=== PATIENT | female | born 1950 | race Caucasian/White ===

== ENCOUNTER 2017-02-08 01:02 | Inpatient (IN) | payer OTHER ==
--- NOTE | ~2017-02-08 | EKG ---
PATIENT: MYRA ELAM UNIT #: [id number] Ventricular Rate: 115 BPM Atrial Rate: 115 BPM P-R Interval: 144 ms QRS Duration: 96 ms Q-T Interval: 348 ms QTC Calculation(Bezet): 481 ms P [place]: 66 degrees Calculated R [place]: -66 degrees Calculated T [place]: 78 degrees Diagnosis Line: Sinus tachycardia Diagnosis Line: Left axis deviation Diagnosis Line: Nonspecific ST abnormality Diagnosis Line: Abnormal ECG Diagnosis Line: No previous ECGs available Diagnosis Line: Confirmed by BEATRIZ SUNSHINE MD ([id number]) on 02/08/2017 Diagnosis Line: 10:43:30 AM INTERPRETING MD: BITA LOPEZ
--- NOTE | ~2017-02-08 | CO ---
Unit #: [id number] #: [id number] Patient: MYRA ELAM [id number] [address] [address] [id number] I MR#: [id number] NAME: MYRA ELAM ROOM: [facility] Age: 66 Sex: F Admission Date: 02/08/2017 : 1950 Attending Physician: Derek Green M.D. Primary Care Physician: Jd Marte M.D. Consultation Date: 02/08/2017 CONSULTATION REPORT REASON FOR CONSULT Vent management. HISTORY OF PRESENT ILLNESS This is a 66-year-old female with past medical history significant for COPD, alcohol abuse, depression, who presented to the emergency room after she took 20 pills of Klonopin with the intention to kill herself. Patient is currently on the ventilator, unable to provide any history. Apparently patient when presented to the ER she was oriented x3 but she was very frustrated and depressed. She stated that she no longer wants to live anymore. In the ER she received charcoal but there was concern of aspiration and respiratory compromise so patient was intubated by the ER physician at that time. She is currently sating 100% on only 50% FIO2. She is in no distress and she is following commands. Alcohol level was 295. PAST MEDICAL HISTORY 1. COPD. 2. Alcohol abuse. 3. Chronic iron deficiency anemia. 4. Seasonal allergy. 5. Depression. 6. GERD. 7. Hypothyroidism. 8. History of atrial flutter. 9. History of GI bleed. PAST SURGICAL HISTORY 1. Appendectomy. 2. Hysterectomy. 3. Right knee surgery. 4. Cardiac ablation. SOCIAL HISTORY Patient lives at home. She drinks alcohol daily up to a six pack. She is a reformed smoker. She quit smoking six years ago but she had 30 to 50 pack-year smoking history. No history of drug abuse. FAMILY HISTORY Noncontributory. ALLERGIES 1. Penicillin. Unit #: [id number] #: [id number] Patient: MYRA ELAM 2. Codeine. 3. Latex. 4. Strawberries. HOME MEDICATION 1. Ferrous sulfate. 2. Bumex. 3. Zoloft. 4. Cardizem. 5. Aspirin. 6. Flecainide. 7. Flonase. 8. Synthroid. 9. Proventil. 10. Symbicort. 11. Spiriva. 12. Ventolin. 13. Omeprazole. 14. Levaquin. 15. Mobic. REVIEW OF SYSTEMS Unable to obtain from the patient due to her condition. PHYSICAL EXAMINATION VITAL SIGNS: Temperature 98.2. Pulse 86. Respiratory rate 16. Blood pressure 131/71. HEENT: Normocephalic and atraumatic. PERRLA. EOMI. NECK: Supple. No JVD. No lymphadenopathy. CHEST: Bilateral coarse rhonchi. HEART: S1, S2. No murmurs, gallops or rubs. ABDOMEN: Soft, nontender. Bowel sound is positive. No hepatosplenomegaly. EXTREMITIES: No edema or cyanosis. SKIN: No rashes. REHABILITATION CENTER MANAGER: Patient is intubated and sedated. However she is waking up on sedation and following commands. DIAGNOSTIC STUDIES LABORATORY: Creatinine 0.7, magnesium 1.7, white blood count unavailable. IMAGING: Chest x-ray was reviewed and noted. ASSESSMENT 1. Acute hypoxic respiratory failure. 2. Aspiration. 3. Drug overdose. 4. Suicidal attempt. 5. Alcoholism. 6. Chronic obstructive pulmonary disease. 7. Hypertension. PLAN 1. Patient is critical. Will continue patient on the ventilator but will attempt spontaneous breathing trial hoping that she can come off the vent soon. 2. Will add bronchodilator and mucolytics. 3. I will watch off antibiotics. However, if she spikes fever or if she Unit #: [id number] #: [id number] Patient: MYRA ELAM has any change in her condition will proceed with anaerobic coverage. 4. Continue patient on IV fluid and monitor urine output. 5. Will keep her n.p.o. However, will start tube feed tomorrow if she is not extubated. 6. DVT/GI prophylaxis. Dictated by... Sheba Pugh TD: 02/08/2017 17:18 JOB #: [id number] CONSULTATION REPORT Page 1 of 1 X IZA WHEELER MD CONSULTATION REPORT
--- NOTE | ~2017-02-08 | CO ---
Unit #: [id number] #: [id number] Patient: MYRA ELAM [id number] [facility] [address] [place], [place] [address] [id number] I MR#: [id number] NAME: MYRA ELAM ROOM: 318 Age: 66 Sex: F Admission Date: 02/08/2017 : 1950 Attending Physician: Derek Green M.D. Primary Care Physician: Jd Marte M.D. Consultation Date: 02/12/2017 CONSULTATION REPORT REASON FOR CONSULTATION Followup. DISCUSSION Ms. Myra Elam is a 66-year-old female seen in room 318, bed 1 on 02/12/17 at [facility]. Patient has a sitter. Reports that she is feeling better. Decrease in anxiety. Mood is better. Patient denied any thoughts of harming self or others and denied any psychotic symptoms. Patient's vital signs: 98.3, 87, 18, 127/46, and oxygen saturation 100%. Patient was admitted with intentional overdose. REVIEW OF SYSTEMS Complete review of systems unremarkable. MENTAL STATUS EXAMINATION VITAL SIGNS: Please see above. GENERAL APPEARANCE: Patient dressed casually and lying comfortably in bed. Made good eye contact. Pleasant and cooperative during interview. ATTENTION SPAN AND CONCENTRATION: Fair. SPEECH: Regular rate, coherent. ORIENTATION: Oriented in time, place, and person. MOOD AND AFFECT: Labile, but made good eye contact and able to smile. THOUGHT PROCESS: Coherent. THOUGHT CONTENT: Patient denied any thoughts of harming self or others or any psychotic symptoms. RECENT AND REMOTE MEMORY: Fair. LANGUAGE: Intact. FUND OF KNOWLEDGE: Fair. INSIGHT AND JUDGEMENT: Fair to slightly impaired. DIAGNOSES PSYCHIATRIC: Major depressive disorder, recurrent (1) , severe, F33.2. ASSESSMENT/PLAN 1. Supportive psychotherapy and psychoeducation provided to patient. 2. Educated about benefits and side effects of medication and course and prognosis of illness. 3. We can discontinue sitter at this time and monitor patient's mood and behavior. If needed, consider resuming her antidepressant. Once patient is medically stable, [facility]. Please feel free to call if any questions. Telephone number Unit #: [id number] #: [id number] Patient: MYRA ELAM . Dictated by... Sheba Varela/lawrence TD: 02/13/2017 08:31 JOB #: [id number] CONSULTATION REPORT Page 1 of 1 X Mendoza Marina MD X CONSULTATION REPORT
--- NOTE | ~2017-02-08 | HP ---
Unit #: [id number] #: [id number] Patient: MYRA ELAM [id number] [place], [place] [address] [id number] I MR#: [id number] NAME: MYRA ELAM ROOM: 08585 Age: 66 Sex: F Admission Date: 02/08/2017 : 1950 Attending Physician: Aakash Conway M.D. Primary Care Physician: Jd Marte M.D. HISTORY AND PHYSICAL REASON FOR ADMISSION 1. Suicidal intention. 2. Acute hypoxic respiratory failure. 3. Drug overdose, per patient. HISTORY OF PRESENT ILLNESS The patient is a 66-year-old female, who initially presented to the ER alert and oriented x3. She stated that she had taken 20 Klonopins with the intention of killing herself. She stated that she had strong suicidal ideation. She was very frustrated, depressed and stated that she no longer wanted to live anymore. Through ER course, she had received charcoal. While receiving charcoal, apparently her respiratory status was compromised. She began having coarse rhonchi and therefore decision was made for the patient to be intubated and placed on sedation by ER physician. At the present time, her sedation is currently being discontinued and discussion has been initiated with heading pinner in consideration for possible extubation. Initial laboratory studies in the emergency room revealed a negative urine tox. CMP normal. Alcohol level of 295. Initial chest x-ray was negative. PAST MEDICAL HISTORY 1. Last hospital admission to [facility] in March 2015, secondary to sepsis. 2. Acute on chronic hypoxic respiratory failure. 3. COPD. 4. Alcohol abuse. 5. Chronic iron-deficiency anemia. 6. Seasonal allergies. 7. Depression. 8. GERD. 9. Hypothyroidism. 10. Tobacco abuse. 11. Prior history of hyponatremia, likely secondary to ongoing alcohol abuse. 12. Prior history of GI bleed. 13. Prior history of atrial flutter, status post ablation. PAST SURGICAL HISTORY 1. Appendectomy. 2. Hysterectomy. 3. Right knee surgery. 4. Cardiac ablation. Unit #: [id number] #: [id number] Patient: MYRA ELAM SOCIAL HISTORY Resides at home alone. Drinks alcohol, at least a 6-pack on a daily basis. Reformed smoker, quit smoking approximately six years ago, 30-50 pack year smoking history. She denies illicit drug use. FAMILY HISTORY Noncontributory. ALLERGIES Penicillin, codeine, latex, strawberries. HOME MEDICATIONS 1. Ferrous gluconate. 2. Bumex. 3. Zoloft. 4. Diltiazem. 5. Aspirin. 6. Flecainide. 7. Flonase. 8. Synthroid. 9. Proventil. 10. Symbicort. 11. Spiriva. 12. Ventolin. 13. Omeprazole. 14. Levaquin. 15. Mobic. REVIEW OF SYSTEMS Please see HPI. A 12-point otherwise negative, except for those positive and noted in the HPI. PHYSICAL EXAMINATION VITAL SIGNS: Temperature 98.1, pulse 88, respiratory rate 21, blood pressure 135/71. GENERAL APPEARANCE: A 66-year-old frail female in no acute distress. HEENT: Head: Atraumatic. Ears: Tympanic membranes did not reveal erythema, injection. NECK: Supple. CARDIOVASCULAR: S1, S2 without murmur. RESPIRATORY: Coarse rhonchi noted bilaterally. GASTROINTESTINAL/ABDOMEN: Nontender, nondistended. EXTREMITIES: Lower extremities have no evidence of any lower extremity edema. No calf tenderness. NEUROLOGIC: Patient A and O x3. DIAGNOSTIC STUDIES LABORATORY: Initial ER course/laboratory studies: Please see above. Patient also through ER course received activated charcoal and was subsequently intubated. INITIAL ADMISSION DIAGNOSES 1. Acute hypoxic respiratory failure. 2. Possible aspiration pneumonia. 3. Suicidal intention. 4. Acute alcohol intoxication with blood alcohol level 295. Unit #: [id number] #: [id number] Patient: MYRA ELAM 5. Acute ingestion of 20 Klonopin/benzodiazepine overdose, although drug screen negative. 6. Prior history of chronic obstructive pulmonary disease. 7. Prior history of atrial flutter, status post ablation. 8. Anemia. 9. Prior history of tobacco abuse. PLAN Admission intensive care unit. The case was already discussed with Dr. Arzate. Plans for extubation later this morning versus early afternoon. A 72-hour hold, Dr. Marina consult. Routine laboratory studies. Although she states she took Klonopin, urine tox is negative. Will follow [facility] protocol for now. Further disposition including [facility] will be determined per hospital course. Dictated by Sheba Tamayo TD: 02/08/2017 10:52 JOB #: [id number] HISTORY AND PHYSICAL Page 1 of 1 X Derek Green MD X HISTORY AND PHYSICAL
--- NOTE | ~2017-02-08 | CO ---
Unit #: [id number] #: [id number] Patient: MYRA ELAM [id number] [address] [place], [place] [address] [id number] I MR#: [id number] NAME: MYRA ELAM ROOM: 318 Age: 66 Sex: F Admission Date: 02/08/2017 : 1950 Attending Physician: Derek Green M.D. Primary Care Physician: Jd Marte M.D. CONSULTATION REPORT REASON FOR CONSULTATION Arrhythmias. HISTORY OF PRESENT ILLNESS This is a 66-year-old white female, who is known to Dr. Deshaun Hutchinson, who has a history of atrial fibrillation/flutter, where she underwent ablation 3 years ago. She has been maintained on diltiazem and flecainide. The patient presents with a suicidal attempt with . According to the records, she took tablets. The patient was subsequently intubated and is now extubated. We are seeing her in the intensive care unit. Rhythm strip shows intermittent episodes of atrial fibrillation with ventricular response. The patient reports occasional palpitations that has been ongoing for a while. She also reports substernal chest pressure, that does not radiate to her neck, arm, or jaw. She has associated dyspnea. Chest pressure occurs with activity and has awakened her from sleep. She denies a history of hypertension, hyperlipidemia, or diabetes. Risk factors includes nicotine abuse and family history of premature coronary artery disease. Stress test in 2009 was negative. PAST MEDICAL HISTORY 1. A 2D echocardiogram on 04/11/2014 shows normal ejection fraction, mild mitral regurgitation, mild tricuspid regurgitation, right ventricular systolic pressure 30 to 40 mmHg. 2. Exercise Cardiolite stress test on 04/04/2010 shows no ischemia, ejection fraction of 63%. 3. Atrial fibrillation/flutter, status post cardiac ablation on 03/02/2014. 4. COPD. 5. Hypothyroidism. 6. Anemia. 7. History of GI bleed, status post EGD and colonoscopy in 2013, which showed erosive esophagitis. 8. Nicotine abuse. 9. Daily EtOH use. PAST SURGICAL HISTORY 1. Knee surgery. 2. Hysterectomy. 3. Appendectomy. SOCIAL HISTORY The patient is a retired bar owner consulting engineer. Quit smoking 6 years ago, but still Unit #: [id number] #: [id number] Patient: MYRA ELAM smokes on occasion. She admits drinking at least two beers to me; however, has told other physicians she drinks up to a 6 pack a day. FAMILY HISTORY Father had myocardial infarction in his 50s. Mother had open heart surgery in her 70s. ALLERGIES Penicillin, codeine, latex, and strawberries. HOME MEDICATIONS Albuterol per mini nebs q.4 hours p.r.n.; albuterol 2 puffs q.6 hours p.r.n.; Symbicort 160/4.5 mcg 2 puffs b.i.d.; Flonase 0.05% nasal spray one spray each nostril daily; clobetasol propionate 0.05% topically b.i.d.; Spiriva one inhalation daily; Zoloft 100 mg daily; diltiazem 120 mg daily; flecainide 50 mg daily; Bumex 1 mg daily; ferrous gluconate one tablet b.i.d.; aspirin 81 mg daily; Mobic 7.5 mg b.i.d. p.r.n.; omeprazole 40 mg daily; Levaquin 750 mg daily; levothyroxine 88 mcg daily. REVIEW OF SYSTEMS CONSTITUTIONAL: Negative for fever or chills. Has no weight gain or weight loss. HEENT: No headache, hearing or vision changes, difficulty with swallowing. Has occasional dizziness. CARDIOVASCULAR: Has chest discomfort described in HPI. Has occasional palpitations. No paroxysmal nocturnal dyspnea or orthopnea. Denies syncope or near syncope. RESPIRATORY: Has occasional dyspnea and nonproductive cough. No hemoptysis. GASTROINTESTINAL: No abdominal pain, nausea, or vomiting. No constipation. No melena. EXTREMITIES: Negative for lower extremity edema. PHYSICAL EXAMINATION VITAL SIGNS: Blood pressure is 116/61, heart rate 63, temperature 98.9, BMI is 22. GENERAL: This is a pleasant 66-year-old, well-developed white female, who is in no acute distress. NEUROLOGIC: She is awake, alert, and oriented. There are no focal weaknesses. NECK: Trachea is midline. No thyromegaly or lymphadenopathy. No jugular venous distention. HEART: S1, S2. Heart sounds are normal. No murmurs, rubs, or clicks. Regular rate and rhythm. LUNGS: Clear without rales, rhonchi, or wheezes. ABDOMEN: Soft and nontender with bowel sounds present. EXTREMITIES: Without leg edema. SKIN: Warm and dry. DIAGNOSTIC STUDIES LABORATORY RESULTS: Glucose 84, BUN 15, creatinine 0.5. Sodium 139, potassium 3.9, troponin less than 0.05. White count 6.6, hemoglobin 8.3, hematocrit 26.3, platelet count is 295. IMAGING STUDIES: Chest x-ray shows no active disease. CARDIOVASCULAR STUDIES: EKG; sinus tachycardia, rate of 115 beats per minute with left axis deviation. There is poor R-wave progression. Unit #: [id number] #: [id number] Patient: MYRA ELAM Rhythm strip shows intermittent paroxysmal atrial fibrillation. IMPRESSION 1. Suicidal attempt with . 2. Acute respiratory failure. 3. Paroxysmal atrial fibrillation. 4. Unstable angina. 5. Status post radiofrequency ablation for atrial fibrillation in 2013. 6. Chronic obstructive pulmonary disease. 7. EtOH and nicotine abuse. PLAN 1. Cardiology was consulted for evaluation of arrhythmias. The patient's rhythm strip demonstrates paroxysmal atrial fibrillation. We would add beta-rachel and increase flecainide to control atrial fibrillation. 2. The patient's chest pain is typical for ischemic heart disease. She requires cardiac catheterization to rule out coronary artery disease. This has been discussed with the patient and she is agreeable. We will schedule for Sunday. 3. Supplement electrolytes. 4. Add nitrates and high-intensity statin. 5. Lipid profile will be obtained. 6. Continue aspirin and increase Lovenox. 7. Encourage the patient to quit smoking. 8. Diltiazem will be discontinued. 9. Follow up with Dr. Hutchinson at discharge. Thank you for allowing us to assist with this patient's care. Dictated by... Zeb Tinsley.P.R.N. for Sheba Rice/chad TD: 02/10/2017 02:11 JOB #: [id number] CC: Sheba Soares M.D. CONSULTATION REPORT Page 1 of 1 X Renaldo Scanlon APRN CONSULTATION REPORT
--- NOTE | ~2017-02-08 | CO ---
Unit #: [id number] #: [id number] Patient: MYRA ELAM [id number] [address] [address] [id number] MR#: [id number] NAME: MYRA ELAM ROOM: 318 Age: 66 Sex: F Admission Date: 02/08/2017 : 1950 Attending Physician: Derek Green M.D. Primary Care Physician: Jd Marte M.D. CONSULTATION REPORT REASON FOR CONSULTATION Followup. DISCUSSION Ms. Myra Elam is a 66-year-old female, seen in room 380, bed 1 on 02/13/2017. The patient was pleasant and cooperative, affect bright, mood good. The patient has a sitter. Reports no suicidal or homicidal ideation. Reports mood is better. Denied any psychotic symptom. The patient reports making progress and able to contract for safety. The patient's vital signs; temperature 98.3, pulse 67, respiratory rate 20, blood pressure 98/58, oxygen saturation 100%. The patient reports that she would like to follow up on the outpatient basis. REVIEW OF SYSTEMS Complete review of systems unremarkable. MENTAL STATUS EXAMINATION Vital signs, please see above. General appearance, the patient dressed casually in hospital attire. Attention span and concentration, fair. Speech, regular rate and coherent. Oriented in time, place, and person. Mood and affect, sad and dysphoric. Thought process, coherent. Thought content, the patient denied any thoughts of harming self or others or any psychotic symptom. Recent and remote memory, fair. Language, intact. Fund of knowledge, fair to slightly impaired. Insight and judgment, fair to slightly impaired. DIAGNOSIS Psychiatric: Major depressive disorder, recurrent, severe, F33.2. ASSESSMENT/PLAN 1. Supportive psychotherapy and psychoeducation provided to the patient. 2. Educated about benefits and side effects of medication and course and prognosis of illness. 3. Advised the patient to follow up in outpatient program, adult partial hospitalization program, and also given information about crisis line #[phone]. At this time, recommending to discontinue sitter. The patient maybe discharge if medically stable. Please feel free to call if any questions, telephone #[phone]. Dictated by... Sheba Varela/chad Unit #: [id number] #: [id number] Patient: MYRA ELAM TD: 02/13/2017 23:18 JOB #: [id number] CONSULTATION REPORT Page 1 of 1 X Mendoza Marina MD CONSULTATION REPORT
--- NOTE | ~2017-02-08 | EKG ---
PATIENT: MYRA ELAM UNIT #: [id number] Ventricular Rate: 70 BPM Atrial Rate: 70 BPM P-R Interval: 152 ms QRS Duration: 78 ms Q-T Interval: 408 ms QTC Calculation(Bezet): 440 ms P [place]: 65 degrees Calculated R [place]: -5 degrees Calculated T [place]: 39 degrees Diagnosis Line: Normal sinus rhythm Diagnosis Line: Normal ECG Diagnosis Line: When compared with ECG of 08-FEB-2017 02:07, Diagnosis Line: Vent. rate has decreased BY 45 BPM Diagnosis Line: QRS duration has decreased Diagnosis Line: Confirmed by SARAH CHANDRA MD ([id number]) on Diagnosis Line: 02/10/2017 1:49:57 PM INTERPRETING MD: SURENDRA
--- NOTE | ~2017-02-08 | CR72 ---
[facility] A Service of [facility] & [facility] RADIOLOGY TEXT RESULTS PATIENT: MYRA ELAM LOCATION: [facility] : 48 UNIT #: [id number] AGE: [address]: Joaquin Wiseman MD SEX: F ORDER DR: [id number] [facility] [address] [place], [place] [address] [id number] MR#: [id number] Acc #: [id number] NAME: MYRA ELAM : 1950 SEX: F STUDY DATE/TIME: 02/08/2017 01:57 UNIT: [facility] ROOM: STUDY DESCRIPTION: CR Chest Single View Portable Attending Physician: Joaquin Wiseman M.D. Ordering Physician: Joaquin Wiseman M.D. Primary Care Physician: Jd Marte M.D. MEDICAL IMAGING REPORT This report is preliminary unless electronic signature is present EXAM Portable chest, 02/08 at 01:57 INDICATIONS Intubation today. Overdose today. FINDINGS AP portable chest is compared with 03/28/2015. There is mild cardiomegaly. There is some chronic scarring in the lungs. No acute infiltrates or pneumothorax is seen. ET tube mid trachea. NG tube in the stomach. Dictated by... Reed Florentino Jr., M.D. THIS IS AN ELECTRONICALLY VERIFIED REPORT Reed Florentino Jr., M.D. at 02/08/2017 6:03 AM DANAE/alexia TD: 02/08/2017 04:06 JOB #: [id number] MEDICAL IMAGING REPORT Page 1 of 1 COPY
--- NOTE | ~2017-02-08 | EKG ---
PATIENT: MYRA ELAM UNIT #: [id number] Ventricular Rate: 67 BPM Atrial Rate: 67 BPM P-R Interval: 148 ms QRS Duration: 74 ms Q-T Interval: 430 ms QTC Calculation(Bezet): 454 ms P [place]: 76 degrees Calculated R [place]: 6 degrees Calculated T [place]: 59 degrees Diagnosis Line: Normal sinus rhythm Diagnosis Line: Normal ECG Diagnosis Line: Diagnosis Line: Confirmed by DIANE CANADA MD ([id number]) on 02/12/2017 Diagnosis Line: 9:57:48 PM INTERPRETING MD: NANCIE LOPEZ
--- NOTE | ~2017-02-08 | CO ---
Unit #: [id number] #: [id number] Patient: MYRA ELAM [id number] [facility] [address] [place], [place] [address] [id number] I MR#: [id number] NAME: MYRA ELAM ROOM: [facility] Age: 66 Sex: F Admission Date: 02/08/2017 : 1950 Attending Physician: Derek rGeen M.D. Primary Care Physician: Jd Marte M.D. Consultation Date: 02/08/2017 CONSULTATION REPORT REASON FOR CONSULTATION Suicide attempt by taking overdose, alcohol intoxication. HISTORY OF PRESENT ILLNESS Ms. Myra Elam is a 66-year-old white female seen in CCU-2 bed-7 at [facility]. Patient was admitted with a suicide attempt, taking an overdose, and acute hypoxic respiratory failure. Patient needed intubation as patient took multiple medications with the intention to kill herself. Patient took 20 Klonopin. Patient presented with feeling sad, depressed, suicidal ideation. Patient's blood alcohol was 295. At the time of admission, patient was unable to give any reliable information at this time. Intubated, but still somewhat agitated requiring medication for sedation. PAST PSYCHIATRIC HISTORY Remarkable for history of previous treatment for depression, alcohol abuse, but none at [facility]. Patient was treated at [facility] in March 2015. MEDICAL HISTORY AND MEDICATION HISTORY 1. History of COPD. 2. Alcohol abuse. 3. Chronic iron deficiency anemia. 4. Seasonal allergies. 5. Depression. 6. GERD. 7. Hypothyroidism. 8. History of atrial flutter. 9. History of GI bleed. Medications - patient is on: 1. Ferrous sulfate. 2. Bumex. 3. Zoloft. 4. Cardizem. 5. Aspirin. 6. Flecainide. 7. Flonase. 8. Synthroid. 9. Proventil. 10. Symbicort. 11. Spiriva. 12. Ventolin. 13. Omeprazole. Unit #: [id number] #: [id number] Patient: MYRA ELAM 14. Levaquin. 15. Mobic. FAMILY HISTORY/SOCIAL HISTORY Unavailable at this time. No known history of any abuse. History of substance abuse as mentioned above. REVIEW OF SYSTEMS Complete review of systems unable to perform. Patient is currently intubated. MENTAL STATUS EXAMINATION VITAL SIGNS: 99.3, 86, 21, 141/70. Oxygen saturation 97%. Urine drug screen negative. GENERAL APPEARANCE: Patient dressed in hospital attire, apparently intubated. Attention span and concentration - unable to assess. Speech - unable to assess. Orientation, mood and affect, thought process, thought content, recent and remote memory - unable to assess. Language - unable to assess. Fund of knowledge - unable to assess. Insight and judgment impaired. DIAGNOSIS PSYCHIATRIC: 1. Major depressive disorder, recurrent, severe - F33.0 2. Alcohol use disorder, severe F10.20 SECONDARY DIAGNOSIS Deferred. MEDICAL DIAGNOSIS Please refer to H and P. STRESSORS Psychosocial stressor. ASSESSMENT/PLAN Recommending at this time to continue with the treatment in ICU. At this time, plan to consider medication once patient is more awake. Plan to stabilize patient medically and then transfer patient to [facility] for inpatient psychiatric treatment. If medication needed for agitation, we will consider such as haloperidol. Please feel free to call if any questions. Telephone number [phone]. Dictated by... Sheba Varela/mohini TD: 02/09/2017 08:12 JOB #: [id number] Unit #: [id number] #: [id number] Patient: MYRA ELAM CONSULTATION REPORT Page 1 of 1 X Mendoza Marina MD CONSULTATION REPORT
--- NOTE | ~2017-02-08 | DS ---
Unit #: [id number] #: [id number] Patient: MYRA ELAM [id number] [address] [place], [place] [address] [id number] I MR#: [id number] NAME: MYRA ELAM ROOM: 318 Age: 66 Sex: F Admission Date: 02/08/2017 : 1950 Discharge Date: 02/13/2017 Attending Physician: Derek Green M.D. Primary Care Physician: Jd Marte M.D. DISCHARGE SUMMARY ADDENDUM This is an addendum to the job summary that was started on 02/12/2017 by myself. Please note that, since the time of that discharge, the patient was assessed by [facility] who felt that patient is stable, stated that she didn't have true intention of suicide attempts, that she was just upset, therefore, was lashing out for attention and the patient is psychiatrically stable to be discharged home and can follow up four outpatient mental health and medication management at [facility]. She was seen again by Dr. Marina of psychiatry who felt that patient, at this time, is stable and can follow up with outpatient antidepressant program for further depression needs. I will also update a discharge Med Rec to include: 1. Albuterol inhaler, two puffs every six hours as needed for wheezing and/or shortness of breath. 2. Symbicort 160 mcg, two puffs inhaled twice daily. 3. Flonase, one spray to each naris daily. 4. Clobetasol propionate, apply topically to affected area. 5. Tiotropium, one puff inhaled daily. 6. Sertraline 100 mg orally daily. 7. She will be stopping the diltiazem per cardiology's recommendations. 8. Flecainide was increased to 50 mg orally twice daily. 9. Lopressor 25 mg orally twice daily was started. 10. Iron supplement 324 mg orally twice daily. 11. Multivitamin, one tablet orally daily. 12. Aspirin 81 mg orally daily. 13. Omeprazole 40 mg orally daily. 14. Levothyroxine 88 mcg orally daily. Please also note - she was seen by speech therapy due to her overdose and signs and symptoms of aspiration. Speech therapy has explained to the patient multiple times that with her pharyngeal dysphagia it could lead to aspiration pneumonia and have recommended the slick diet. I have gone over this with patient as well stating that this diet is specifically for her to prevent aspiration pneumonia. The patient voiced understanding. Dictated byPaula Diallo PA-C for Sheba Pang/mohini Unit #: [id number] #: [id number] Patient: MYRA ELAM TD: 02/14/2017 08:11 JOB #: [id number] DISCHARGE SUMMARY Page 1 of 1 X X DISCHARGE SUMMARY
--- NOTE | ~2017-02-08 | DS ---
Unit #: [id number] #: [id number] Patient: MYRA ELAM [id number] [address] [address] [id number] I MR#: [id number] NAME: MYRA ELAM ROOM: 318 Age: 66 Sex: F Admission Date: 02/08/2017 : 1950 Discharge Date: Attending Physician: Derek Green M.D. Primary Care Physician: Jd Marte M.D. DISCHARGE SUMMARY DISCHARGE DIAGNOSES 1. Acute hypoxic respiratory failure due to drug overdose. 2. Suicide attempt with ingestion of Klonopin. 3. Patient was treated and ruled out for pneumonia. 4. Alcohol intoxication on admission. 5. History of chronic obstructive pulmonary disease. 6. History of atrial flutter status post ablation. 7. Anemia, chronic. Hemoglobin and hematocrit have been stable. 8. Prior tobacco abuse. 9. Ventricular tachycardia noted on telemetry. Left heart cath has been done. No ischemia was noted. PROCEDURES Left heart cath on 02/12/[address] Osborne. Findings - Normal left ventricular systolic function and normal coronary arteries. CONSULTANTS 1. Dr. Osborne of cardiology. 2. Dr. Marina of psychiatry. 3. Dr. Chaz Arzate and Dr. Randolph of pulmonary. DIAGNOSTIC STUDIES IMAGING: Chest x-ray on 02/08/17. Findings - Stable cardiomegaly. Some chronic scarring in the lungs. No acute infiltrate or pneumothorax seen. LABS: Today's labs include BMP - Glucose 84, BUN less than 5, creatinine 0.5, sodium 135, potassium 4.1, chloride 102, CO2 27, calcium 8.7. CBC with WBC of 4.7, RBC 3.23, hemoglobin 8.3, hematocrit 27, MCV 83.3, MCH 25.7, MCHC 30.9, RDW 22.4, platelets 317, MPV 7.3. MICROBIOLOGY: Sputum - Normal respiratory ta. CARDIOVASCULAR: Two-D echo. Summary - Left ventricular size is normal. No regional wall motion abnormalities. Mild concentric left ventricular hypertrophy. Impaired relaxation. Grade 1 diastolic dysfunction. Overall left ventricular function is normal. Ejection fraction is visualized at 55%. No evidence of left ventricular mass or thrombus noted. Aortic valve leaflets are somewhat thickened. Tricuspid valve is structurally normal. HOSPITAL COURSE The patient is a 66-year-old female with past medical history of chronic respiratory failure, COPD, alcohol abuse, chronic iron deficiency anemia, seasonal allergies, depression, GERD, hypothyroidism, tobacco abuse, history of GI bleed, history of atrial fibrillation status post ablation. Unit #: [id number] #: [id number] Patient: MYRA ELAM She was brought to the emergency department due to a suicide attempt where she had taken 20 Klonopin. In the ER she did receive charcoal, which then resulted in significant pulmonary distress. Patient was intubated for acute hypoxic respiratory failure with possible aspiration pneumonia. Was admitted to ICU. It was determined by Dr. Arzate with pulmonary to assess the patient without treatment of antibiotics. The following day, patient was successfully extubated and had done well on CPAP. She was seen in consultation with Dr. Marina of psychiatry due to her suicide attempt who felt that the patient did need inpatient hospitalization at [facility] due to her suicide attempt. She had a run of V tach. Given her significant heart history and co-morbidities, cardiology was consulted. Dr. Osborne of cardiorespiratory has seen this patient. After careful review of the patient's records, including echo and cardiology notes, it was felt by Dr. Osborne that it was in the patient's best interest to undergo left heart cath to determine if there was any ischemia. This was done on 02/12/17, and she was found to have normal left ventricular ejection fraction and normal coronary arteries. She was seen in consultation with speech therapy due to possible aspiration who recommended pureed slick diet with thin liquids, as well as six small meals to be given at a slow rate and only when the patient is alert, to remain upright for all oral intake, crush meds and put into orange juice or any other drink. At this time patient is stable and will be [facility] due to her suicide attempt. DISCHARGE CONDITION Stable. [facility] To [facility] DISCHARGE FOLLOWUP 1. Patient is to follow up with cardiology for any further needs. 2. Follow up with primary care physician within 1 to 2 weeks. DISCHARGE DIET Per speech recommendations, patient is to have pureed slick diet with thin liquids as tolerated, 6 small meals and "to place all meds into orange juice or any other drink," to remain upright after all oral intake. DISCHARGE MEDICINES 1. Albuterol 2 puff inhaled q.6 hours as needed for wheezing and/or shortness of breath. 2. Symbicort 160 mcg 2 puffs inhaled b.i.d. 3. Fluticasone propionate 1 spray into each naris daily. 4. Clobestasol propionate applied topically to affected areas b.i.d. 5. Spiriva 1 puff inhaled daily. 6. Sertraline 100 mg orally daily. 7. Multivitamin 1 tablet orally daily. 8. Omeprazole 40 mg orally daily. 9. Levothyroxine 88 mcg orally daily. NOTE: I will defer all cardiology meds, including diltiazem, flecainide, Lopressor, Bumex, Lipitor and aspirin for cardiology to review when they round on this patient. NOTE: This dictation took 45 minutes, including patient education and to coordinate care. Unit #: [id number] #: [id number] Patient: ELAMMYRA SMITH Dictated by... Courtney Diallo PA-C for Sheba Pang/london TD: 02/12/2017 14:49 JOB #: [id number] DISCHARGE SUMMARY Page 1 of 1 X X DISCHARGE SUMMARY
--- NOTE | ~2017-02-08 | CO ---
Unit #: [id number] #: [id number] Patient: MYRA ELAM [id number] [address] [address] [id number] I MR#: [id number] NAME: MYAR ELAM ROOM: 318 Age: 66 Sex: F Admission Date: 02/08/2017 : 1950 Attending Physician: Derek Green M.D. Primary Care Physician: Jd Marte M.D. Consultation Date: 02/09/2017 CONSULTATION REPORT REASON FOR CONSULTATION Followup. DISCUSSION Ms. Myra Gallo is a 66-year-old white female, seen on CCU-2, bed 7 on 02/09/2017 at [facility]. The patient was extubated this morning. The patient was admitted with overdose of her pills. The patient reports that she took overdose because she was mad, angry, upset. The patient reported it was the intentional overdose. The patient is still feeling sad, depressed, withdrawn, isolative. She has a sitter. The patient dressed in casual attire, lying comfortably in bed. Able to make good eye contact. Able to answer questions appropriately. Currently, denied any hallucination, but having passive SI. The patient's vital signs; temperature 98.8, pulse 69, respirations 20, blood pressure 127/69, oxygen saturation 100%. MENTAL STATUS EXAMINATION General appearance; the patient dressed casually in hospital attire, lying comfortably in bed. Attention span and concentration, fair. Speech; regular rate and coherent. Oriented in time, place, and person. Mood and affect, labile. Thought process, coherent. Thought content; the patient denied any thoughts of harming self or others. Recent and remote memory, fair to slightly impaired. Language, fair. Fund of knowledge, fair to slightly impaired. Insight and judgment, fair to slightly impaired. DIAGNOSES Psychiatric: Major depressive disorder, recurrent, [id number], F33.2; alcohol use disorder, moderate, F10.20. ASSESSMENT AND PLAN 1. Supportive psychotherapy and psychoeducation provided to the patient. 2. Educated about benefits and side effects of medication and course and prognosis of illness. 3. Advised to continue with current treatment with a plan to consider transferring the patient [facility] once the patient is medically stable. Please feel free to call if any questions, telephone #[phone]. Dictated by... Sheba Varela/chad Unit #: [id number] #: [id number] Patient: MYRA ELAM TD: 02/10/2017 14:26 JOB #: [id number] CONSULTATION REPORT Page 1 of 1 X Mendoza Marina MD X CONSULTATION REPORT
[~2017-02-08 01:02] MED LIST: ADVAIR 2501 DISK W/D PO; ALBUTEROL17 GM; ASPIRIN EC81 M1 PO; BUMEX1 MG PO; CLOBETASOL PROP TOP; COMBIVENT INH14.7 GM INH; DILTIAZEM 24HR120 M1 PO; ELIQUIS5 MG PO; FERRO-TIME325 MG PO; FERROUS GL325 ( 37.5; FERROUS GLUCON324 MG PO; FLECAINIDE ACET50 MG PO; FLONASE 0.05% N16 G1; HYCODAN60 ML 5MG/ PO; LEVALBUTER0.63 MG/3 IH; LEVAQUIN PO; LEVAQUIN750 M1 PO; LEVOTHYROXINE88 MCG PO; LORTAB 5/500 TA1 TA1 PO; MEDROL PO; MEDROL4 MG/DOSE-; MOBIC PO; OMEPRAZOLE40 M1 PO; OMEPRAZOLE40 MG PO; PERCOCET 5-3251 TAB PO; PREDNISONE10 MG/DOSE PO; PROVENTIL0.83 MG/ML; PROVENTIL0.83 MG/ML IH; SERTRALINE HCL100 MG PO; SPIRIVA18 MCG INH; SYMBICORT 160/4.6 GM IH; SYMBICORT INH; SYNTHROID88 MCG; TESSALON PERLE100 M1 PO; VENTOLIN5 MG/ML INH; ZITHROMAX1 G/PKT PO; ZOLOFT100 MG PO
[2017-02-08 01:35] LABS: POC - CKMB 3.1 ng/mL (0.0-7.9); POC - TROPONIN <0.05 ng/mL (<=0.05)
[2017-02-08 02:28] LABS: ARTERIAL BLD GAS O2 SATURATION 98.2 % (90.0-100.0); ARTERIAL BLOOD GAS CARBOXY HB 0.8 %sat (0.0-9.0); ARTERIAL BLOOD GAS HCO3 21.9 mmol/L; ARTERIAL BLOOD GAS MET HB 0.8 %sat (0.0-2.0); ARTERIAL BLOOD GAS PCO2 41.7 mmHg (35.0-45.0); ARTERIAL BLOOD GAS pH 7.328 (7.350-7.450)
[2017-02-08 02:31] LABS: ARTERIAL BLOOD GAS ALLEN TEST NORMAL; ARTERIAL BLOOD GAS ART SITE RIGHT RADIAL; ARTERIAL BLOOD GAS DELIVERY VENT; ARTERIAL BLOOD GAS VENT MODE AC; ARTERIAL DRAW? YES
[2017-02-08 02:41] LABS: AMPHETAMINE NEG (NEG); BARBITURATES NEG (NEG); BENZODIAZEPINES NEG (NEG); COCAINE NEG (NEG); MARIJUANA NEG (NEG); OPIATES NEG (NEG); TRICYCLIC ANTIDEPRESSANTS NEG (NEG); U METHADONE NEG (NEG)
[2017-02-08 02:51] LABS: ALBUMIN SERUM 3.2 g/dL (3.5-5.0); ALT (SGPT) 32 U/L (10-40); AST (SGOT) 29 U/L (10-42); BILIRUBIN,TOTAL 0.4 mg/dL (0.2-2.0); BLOOD UREA NITROGEN 20 mg/dL (9-23); BUN/CREATININE RATIO 28.57; CALCIUM SERUM 8.6 mg/dL (8.4-10.2); CARBON DIOXIDE 22 mmol/L (22-31); CHLORIDE 103 mmol/L (100-111); CREATININE SERUM 0.7 mg/dL (0.6-1.4); GLUCOSE FASTING 102 mg/dL (70-110); POTASSIUM 4.1 mmol/L (3.5-5.1); SALICYLATE <4.0 mg/dL; SODIUM 134 mmol/L (135-145)
[2017-02-08 03:05] LABS: ACETAMINOPHEN <10 ug/mL; ALCOHOL BLOOD 295 mg/dL (0); ALKALINE PHOSPHATASE 69 U/L (32-92); BILIRUBIN, DIRECT 0.1 mg/dL (0.0-0.2); BILIRUBIN,INDIRECT 0.3 mg/dL (0.0-0.9)
[2017-02-08 04:58] LABS: ARTERIAL BLD GAS O2 SATURATION 98.6 % (90.0-100.0); ARTERIAL BLOOD GAS CARBOXY HB 0.8 %sat (0.0-9.0); ARTERIAL BLOOD GAS HCO3 21.7 mmol/L; ARTERIAL BLOOD GAS MET HB 0.7 %sat (0.0-2.0); ARTERIAL BLOOD GAS PCO2 36.8 mmHg (35.0-45.0); ARTERIAL BLOOD GAS pH 7.379 (7.350-7.450)
[2017-02-08 04:59] LABS: ARTERIAL BLOOD GAS ALLEN TEST NORMAL; ARTERIAL BLOOD GAS ART SITE RIGHT RADIAL; ARTERIAL BLOOD GAS DELIVERY VENT; ARTERIAL BLOOD GAS VENT MODE AC; ARTERIAL DRAW? YES
[2017-02-08 07:53] LABS: SALICYLATE <4.0 mg/dL
[2017-02-08 07:55] LABS: ACETAMINOPHEN <10 ug/mL
[2017-02-09 04:47] LABS: BASOPHIL% 0.6 % (0-2.5); DIFF IND YES; EOSINOPHIL# 0.1 X10e3 (0-0.7); EOSINOPHIL% 0.9 % (0.0-7.0); HEMATOCRIT 26.3 % (35.0-45.0); HEMOGLOBIN 8.3 gm/dL (12.0-16.0); LYMPHOCYTE# 2.2 X10e3 (1.0-3.5); LYMPHOCYTE% 33.8 % (17.0-45.0); MEAN CELL VOLUME 82.1 FL (83-96); MEAN CORPUSCULAR HEMOGLOBIN 25.9 PG (28-34); MEAN CORPUSCULAR HGB CONC 31.5 g/dL (30-36); MEAN PLATELET VOLUME 6.8 FL (6.5-11.5); MONOCYTE# 0.5 X10e3 (0-1.0); MONOCYTE% 7.1 % (3.0-12.0); NEUTROPHIL# 3.8 X10e3 (1.5-7.1); NEUTROPHIL% 57.6 % (40-75); PLATELET COUNT 295 X10e3 (140-420); RED CELL DISTRIBUTION WIDTH 23.4 % (11.0-15.5); WHITE BLOOD COUNT 6.6 X10e3 (4.0-10.5)
[2017-02-09 05:04] LABS: PLATELET ESTIMATE NORMAL (NORMAL)
[2017-02-09 05:05] LABS: ANISOCYTOSIS MOD; HYPOCHROMIA MOD; OVALOCYTES PRESENT; STOMATOCYTE PRESENT
[2017-02-09 05:11] LABS: ALBUMIN SERUM 2.5 g/dL (3.5-5.0); BILIRUBIN,TOTAL 0.9 mg/dL (0.2-2.0); CALCIUM SERUM 8.4 mg/dL (8.4-10.2); CREATININE SERUM 0.5 mg/dL (0.6-1.4); GLOM FILT RATE Estimated 99.5 mL/min (>60); POTASSIUM 3.9 mmol/L (3.5-5.1); PROTEIN TOTAL SERUM 5.2 g/dL (6.0-8.3)
[2017-02-09 12:49] LABS: AMPHETAMINE NEG (NEG); BARBITURATES NEG (NEG); BENZODIAZEPINES POS (NEG); COCAINE NEG (NEG); MARIJUANA NEG (NEG); OPIATES NEG (NEG); TRICYCLIC ANTIDEPRESSANTS NEG (NEG); U METHADONE NEG (NEG)
[2017-02-10 07:03] LABS: BASOPHIL% 0.2 % (0-2.5); EOSINOPHIL# 0.2 X10e3 (0-0.7); EOSINOPHIL% 4.5 % (0.0-7.0); HEMATOCRIT 27.4 % (35.0-45.0); HEMOGLOBIN 8.4 gm/dL (12.0-16.0); LYMPHOCYTE# 1.9 X10e3 (1.0-3.5); LYMPHOCYTE% 36.3 % (17.0-45.0); MEAN CELL VOLUME 84.1 FL (83-96); MEAN CORPUSCULAR HEMOGLOBIN 25.8 PG (28-34); MEAN CORPUSCULAR HGB CONC 30.7 g/dL (30-36); MEAN PLATELET VOLUME 7.2 FL (6.5-11.5); MONOCYTE# 0.3 X10e3 (0-1.0); MONOCYTE% 6.1 % (3.0-12.0); NEUTROPHIL# 2.8 X10e3 (1.5-7.1); NEUTROPHIL% 52.9 % (40-75); PLATELET COUNT 270 X10e3 (140-420); RED BLOOD COUNT 3.25 X10e (3.90-5.30); RED CELL DISTRIBUTION WIDTH 23.3 % (11.0-15.5); WHITE BLOOD COUNT 5.3 X10e3 (4.0-10.5)
[2017-02-10 07:04] LABS: DIFF IND NO
[2017-02-10 10:01] LABS: CHOLESTEROL 192 mg/dL (0-200); HDL CHOLESTEROL 69 mg/dL (35-95); LDL CHOLESTEROL 109 mg/dL (-130); LDL/HDL RATIO 2 RATIO (0-4); TRIGLYCERIDES 71 mg/dL (10-160)
[2017-02-10 10:06] LABS: ALBUMIN SERUM 2.4 g/dL (3.5-5.0); ALKALINE PHOSPHATASE 52 U/L (32-92); ALT (SGPT) 29 U/L (10-40); AST (SGOT) 31 U/L (10-42); BILIRUBIN,TOTAL 0.4 mg/dL (0.2-2.0); CALCIUM SERUM 8.2 mg/dL (8.4-10.2); CARBON DIOXIDE 25 mmol/L (22-31); CHLORIDE 106 mmol/L (100-111); CREATININE SERUM 0.3 mg/dL (0.6-1.4); GLOM FILT RATE Estimated 117.7 mL/min (>60); GLUCOSE FASTING 110 mg/dL (70-110); POTASSIUM 3.6 mmol/L (3.5-5.1); PROTEIN TOTAL SERUM 5.4 g/dL (6.0-8.3); SODIUM 137 mmol/L (135-145)
[2017-02-10 10:07] LABS: BLOOD UREA NITROGEN <5 mg/dL (9-23); BUN/CREATININE RATIO 16.66
[2017-02-11 08:08] LABS: HEMATOCRIT 26.1 % (35.0-45.0); HEMOGLOBIN 8.2 gm/dL (12.0-16.0); MEAN CELL VOLUME 83.2 FL (83-96); MEAN CORPUSCULAR HEMOGLOBIN 26.2 PG (28-34); MEAN CORPUSCULAR HGB CONC 31.5 g/dL (30-36); MEAN PLATELET VOLUME 7.4 FL (6.5-11.5); RED BLOOD COUNT 3.14 X10e (3.90-5.30); RED CELL DISTRIBUTION WIDTH 23.1 % (11.0-15.5); WHITE BLOOD COUNT 5.2 X10e3 (4.0-10.5)
[2017-02-11 08:37] LABS: CALCIUM SERUM 8.4 mg/dL (8.4-10.2); CARBON DIOXIDE 28 mmol/L (22-31); CHLORIDE 103 mmol/L (100-111); CREATININE SERUM 0.5 mg/dL (0.6-1.4); GLOM FILT RATE Estimated 99.5 mL/min (>60); GLUCOSE FASTING 87 mg/dL (70-110); POTASSIUM 4.3 mmol/L (3.5-5.1); SODIUM 136 mmol/L (135-145)
[2017-02-11 08:44] LABS: BLOOD UREA NITROGEN <5 mg/dL (9-23)
[2017-02-12 07:53] LABS: PARTIAL THROMBOPLASTIN TIME 29.7 SECONDS (23.5-31.3)
[2017-02-12 07:54] LABS: HEMOGLOBIN 8.3 gm/dL (12.0-16.0); MEAN CELL VOLUME 83.3 FL (83-96); MEAN CORPUSCULAR HEMOGLOBIN 25.7 PG (28-34); MEAN CORPUSCULAR HGB CONC 30.9 g/dL (30-36); MEAN PLATELET VOLUME 7.3 FL (6.5-11.5); RED BLOOD COUNT 3.23 X10e (3.90-5.30); RED CELL DISTRIBUTION WIDTH 22.4 % (11.0-15.5); WHITE BLOOD COUNT 4.7 X10e3 (4.0-10.5)
[2017-02-12 08:11] LABS: BLOOD UREA NITROGEN <5 mg/dL (9-23); CALCIUM SERUM 8.7 mg/dL (8.4-10.2); CARBON DIOXIDE 27 mmol/L (22-31); CHLORIDE 102 mmol/L (100-111); CREATININE SERUM 0.5 mg/dL (0.6-1.4); GLOM FILT RATE Estimated 99.5 mL/min (>60); GLUCOSE FASTING 84 mg/dL (70-110); POTASSIUM 4.1 mmol/L (3.5-5.1); SODIUM 135 mmol/L (135-145)
[2017-02-13] MEDS ORDERED: MULTIVITAMINS1 EAC2 PO (10:53)
[2017-02-13] MEDS ORDERED: METOPROLOL TAR25 MG PO (10:55)
== END 2017-02-13 12:46 | disposition home or self-care (01) | DRG 917 ==
LOC: CED 01:02 → C3A PCU 04:55 → CEDOF 04:55 → CICCU2 04:55 → CED 07:01 → CEDOF 07:01 → CICCU2 12:10 → CEDOF 12:10 → CICCU2 13:37 → C3A PCU 02-09 17:16
PROVIDERS: Emergency Medicine; Family Medicine; Internal Medicine Cardiovascular Disease
PROC: 0BH17EZ Insertion of Endotracheal Airway into Trachea, Via Natural or Artificial Opening (ICD-10-PCS; principal; 2017-02-08)
PROC: 5A1945Z Respiratory Ventilation, 24-96 Consecutive Hours (ICD-10-PCS; 2017-02-08)
PROC: B24BYZZ Ultrasonography of Heart with Aorta using Other Contrast (ICD-10-PCS; 2017-02-10)
PROC: 4A023N7 Measurement of Cardiac Sampling and Pressure, Left Heart, Percutaneous Approach (ICD-10-PCS; 2017-02-12)
PROC: B211YZZ Fluoroscopy of Multiple Coronary Arteries using Other Contrast (ICD-10-PCS; 2017-02-12)
PROC: B215YZZ Fluoroscopy of Left Heart using Other Contrast (ICD-10-PCS; 2017-02-12)
DX: T42.4X2A Poisoning by benzodiazepines, intentional self-harm, initial encounter (principal); J96.01 Acute respiratory failure with hypoxia; I47.2 Ventricular tachycardia; F33.2 Major depressive disorder, recurrent severe without psychotic features; R45.851 Suicidal ideations; J44.1 Chronic obstructive pulmonary disease with (acute) exacerbation; K21.9 Gastro-esophageal reflux disease without esophagitis; E03.9 Hypothyroidism, unspecified; Z90.710 Acquired absence of both cervix and uterus; Z91.040 Latex allergy status; Z88.0 Allergy status to penicillin; Z91.018 Allergy to other foods; Z79.82 Long term (current) use of aspirin; Y90.8 Blood alcohol level of 240 mg/100 ml or more; D64.9 Anemia, unspecified; F10.229 Alcohol dependence with intoxication, unspecified; I48.0 Paroxysmal atrial fibrillation
CPT/HCPCS: 31500; 36600; 51702; 71010; 74230; 80048; 80053; 80061; 80076; 80307; 82553; 82803; 82947; 84484; 85025; 85027; 85610; 85730; 87070; 87205; 92526; 92610; 92611; 93005; 93306; 94002; 94003; 94640; 94760; 99291; C1769; C1887; C1894; C9113; G0480; G8996-GN; G8997-GN; G8998-GN; J0330; J1644; J1650; J2250; J2405; J3010; J3411; J7042

== ENCOUNTER 2017-02-13 23:41 | Emergency (ER) | payer OTHER ==
--- NOTE | ~2017-02-13 | EKG ---
PATIENT: MYRA ELAM UNIT #: [id number] Ventricular Rate: 81 BPM Atrial Rate: 81 BPM P-R Interval: 172 ms QRS Duration: 70 ms Q-T Interval: 398 ms QTC Calculation(Bezet): 462 ms P Peytona: 68 degrees Calculated R Peytona: -18 degrees Calculated T Peytona: 47 degrees Diagnosis Line: Normal sinus rhythm Diagnosis Line: Normal ECG Diagnosis Line: When compared with ECG of 12-FEB-2017 06:48, Diagnosis Line: No significant change was found Diagnosis Line: Confirmed by RADHA AVILA MD ([id number]) on Diagnosis Line: 02/15/2017 1:14:09 PM INTERPRETING MD: CRYSTAL
--- NOTE | ~2017-02-13 | CR72 ---
[facility] A Service of [facility] & [facility] RADIOLOGY TEXT RESULTS PATIENT: MYRA ELAM LOCATION: [facility] : [birth year] UNIT #: [id number] AGE: [address]: Rae Lowe MD SEX: F ORDER DR: [id number] [facility] [address] [place], [place] [address] [id number] MR#: [id number] Acc #: [id number] NAME: MYRA ELAM : 1950 SEX: F STUDY DATE/TIME: 02/14/2017 2:01 UNIT: [facility] ROOM: STUDY DESCRIPTION: CR Chest Single View Portable Attending Physician: Rae Lowe M.D. Ordering Physician: Rae Lowe M.D. Primary Care Physician: Jd Marte M.D. MEDICAL IMAGING REPORT This report is preliminary unless electronic signature is present EXAM Single view chest INDICATION Shortness of air for 1 day. Midsternal chest pain. FINDINGS Single portable AP view of the chest compared to 02/08/2017. The endotracheal tube and enteric tube have been removed in the interval. Heart and mediastinal contours are unchanged. There is coarsened interstitial markings in both lungs. This is similar to the prior study. No new pulmonary opacities. No pneumothorax. IMPRESSION 1. The patient has been extubated and the enteric tube has been removed since the prior study. 2. Otherwise there is no significant change. Coarsened interstitial markings in both lungs Dictated by... Dharmesh Daniels M.D. THIS IS AN ELECTRONICALLY VERIFIED REPORT Dharmesh Daniels M.D. at 02/14/2017 11:22 PM ADRIÁN/will TD: 02/14/2017 04:20 JOB #: [id number] MEDICAL IMAGING REPORT Page 1 of 1 COPY
[~2017-02-13 23:41] MED LIST changes: +METOPROLOL TAR25 MG PO; +MULTIVITAMINS1 EAC2 PO
[2017-02-14 01:53] LABS: BASOPHIL% 0.5 % (0-2.5); EOSINOPHIL# 0.1 X10e3 (0-0.7); EOSINOPHIL% 3.4 % (0.0-7.0); HEMOGLOBIN 8.9 gm/dL (12.0-16.0); LYMPHOCYTE# 1.2 X10e3 (1.0-3.5); LYMPHOCYTE% 28.3 % (17.0-45.0); MEAN CELL VOLUME 82.7 FL (83-96); MEAN CORPUSCULAR HEMOGLOBIN 26.3 PG (28-34); MEAN CORPUSCULAR HGB CONC 31.8 g/dL (30-36); MEAN PLATELET VOLUME 7.4 FL (6.5-11.5); MONOCYTE# 0.6 X10e3 (0-1.0); MONOCYTE% 13.4 % (3.0-12.0); NEUTROPHIL# 2.3 X10e3 (1.5-7.1); NEUTROPHIL% 54.4 % (40-75); PLATELET COUNT 368 X10e3 (140-420); RED BLOOD COUNT 3.38 X10e (3.90-5.30); WHITE BLOOD COUNT 4.2 X10e3 (4.0-10.5)
[2017-02-14 01:54] LABS: DIFF IND NO
[2017-02-14 02:01] LABS: POC - CKMB 3.6 ng/mL (0.0-7.9); POC - TROPONIN <0.05 ng/mL (<=0.05)
[2017-02-14 02:06] LABS: PROTHROMBIN TIME (PATIENT) 10.2 SECONDS (9.6-11.5)
[2017-02-14 02:20] LABS: BILIRUBIN, DIRECT 0.1 mg/dL (0.0-0.2); BILIRUBIN,INDIRECT 0.1 mg/dL (0.0-0.9); BILIRUBIN,TOTAL 0.2 mg/dL (0.2-2.0); CALCIUM SERUM 9.1 mg/dL (8.4-10.2); CREATININE SERUM 0.6 mg/dL (0.6-1.4); GLOM FILT RATE Estimated 93.7 mL/min (>60); POTASSIUM 3.9 mmol/L (3.5-5.1)
== END 2017-02-14 01:48 | disposition left against medical advice (07) ==
LOC: CED 23:41
PROVIDERS: Emergency Medicine
DX: Z53.21 Procedure and treatment not carried out due to patient leaving prior to being seen by health care provider (principal); Z88.0 Allergy status to penicillin; Z88.5 Allergy status to narcotic agent; Z91.040 Latex allergy status; Z91.018 Allergy to other foods; Z79.899 Other long term (current) drug therapy
CPT/HCPCS: 71010; 80048; 80076; 82553; 84484; 85025; 85610; 93005